=== PATIENT | female | born 1955 | race Two or more races ===

== ENCOUNTER 2024-06-21 12:55 | Emergency (ER) | payer OTHER ==
[~2024-06-21] VITALS: Ht 157.5 cm; Wt 58.1 kg
[2024-06-21] MEDS ORDERED: TENORMIN25 MG (13:09)
[2024-06-21] MEDS ORDERED: ROSUVASTATIN CAL5 MG PO (13:10)
[2024-06-21] MEDS ORDERED: ACETAMINOPHEN 500 MG GEL..CAP PO ONE (14:45)
== END 2024-06-21 18:21 ==
LOC: ER 12:57
DX: S52.592A Other fractures of lower end of left radius, initial encounter for closed fracture (principal); W18.39XA Other fall on same level, initial encounter; Y93.89 Activity, other specified; Y92.018 Other place in single-family (private) house as the place of occurrence of the external cause; I49.8 Other specified cardiac arrhythmias; E78.00 Pure hypercholesterolemia, unspecified

== ENCOUNTER 2024-07-02 12:06 | Outpatient (CLI) | payer OTHER ==
[~2024-07-02 12:06] MED LIST: ROSUVASTATIN CAL5 MG PO; TENORMIN25 MG
== END 2024-07-02 12:11 | disposition home or self-care (01) ==
LOC: RAD 12:06
PROVIDERS: ATTEND Orthopaedic Surgery
DX: S52.531A Colles' fracture of right radius, initial encounter for closed fracture (principal)

== ENCOUNTER 2024-07-03 09:26 | Outpatient (CLI) | payer OTHER ==
[2024-07-03 10:30] LABS: HEMATOCRIT 41.6 % (36.0-45.00); HEMOGLOBIN 14.3 g/dL (12.0-15.00); MEAN CELL VOLUME 89.3 fL (80.00-100.00); MEAN CORPUSCULAR HEMOGLOBIN 30.6 pg (27.00-32.0); MEAN CORPUSCULAR HGB CONC 34.3 g/dl (32.0-36.0); PLATELET COUNT 227 K/uL (150-450); RED BLOOD COUNT 4.66 M/uL (4.00-6.00); RED CELL DISTRIBUTION WIDTH 14.2 % (11.5-14.5)
[2024-07-03 10:37] LABS: PH,URINE 6.5 (5.0-8.0); URINE APPEARANCE Clear; URINE BILIRRUBIN Negative (NEGATIVE); URINE BLOOD Negative; URINE COLOR Yellow; URINE GLUCOSE Negative (NEGATIVE); URINE KETONE Negative (NEGATIVE); URINE LEUKOCYTE Negative; URINE NITRATE Negative; URINE PROTEIN Negative (NEGATIVE); URINE UROBILINOGEN 0.2 E.U./dl
[2024-07-03 10:43] LABS: URINE BACTERIA 6.1 uL (0.0-1933); URINE RBC 9.5 uL (0.0-20.8)
[2024-07-03 10:50] LABS: URINE EPITHELIAL CELLS 0.6 uL (0.0-38.8); URINE WBC 1.4 uL (0.0-23.2)
[2024-07-03 10:54] LABS: INR 1.05; PARTIAL THROMBOPLASTIN TIME 27.3 SECONDS (22.0-34.0); PROTHROMBIN TIME 11.4 SECONDS (9.0-11.5)
[2024-07-03 10:57] LABS: COL EPI 62 SECONDS (82-175)
[2024-07-03 11:35] LABS: ALBUMIN 4.1 gm/dL (3.4-5.0); BILIRUBIN TOTAL 0.62 mg/dL (0.3-1.2); CALCIUM 9.5 mg/dL (8.5-10.1); CREATININE SERUM 0.73 mg/dL (0.55-1.02); GFR 78.81; GLOBULINA 3.7 G/DL (2.4-3.5); POTASSIUM 4.75 mEq/L (3.5-5.1); TOTAL PROTEIN 7.8 gm/dL (6.4-8.2)
[2024-07-04] MEDS ORDERED: VITAMIN D250 MCG PO (12:48)
[2024-07-04] MEDS ORDERED: NASAL MIST126 ML (12:49)
== END 2024-07-03 09:36 | disposition home or self-care (01) ==
LOC: LAB 09:26 → RAD 09:26
PROVIDERS: ATTEND Orthopaedic Surgery
DX: D64.9 Anemia, unspecified (principal); E88.89 Other specified metabolic disorders; D68.8 Other specified coagulation defects; N39.0 Urinary tract infection, site not specified; Z22.322 Carrier or suspected carrier of Methicillin resistant Staphylococcus aureus; E11.9 Type 2 diabetes mellitus without complications; Z76.89 Persons encountering health services in other specified circumstances; I10 Essential (primary) hypertension

== ENCOUNTER 2024-07-07 06:30 | Day surgery (SDC) | payer OTHER ==
[2024-07-04 14:57] VITALS: BP 155/70
[~2024-07-07 06:30] MED LIST changes: +NASAL MIST126 ML; +VITAMIN D250 MCG PO
[2024-07-07] MEDS ORDERED: BUPIVACAINE HCL 30 ML VIAL IJ ONE (07:30)
[2024-07-07] MEDS ORDERED: CEFAZOLIN SODIUM 1,000 MG VIAL IV ONE (07:30)
[2024-07-07] MEDS ORDERED: LIDOCAINE HCL 1%/EPINEPHRINE 20ML VIAL IJ ONE (07:30)
[2024-07-07] MEDS ORDERED: KETOROLAC TROMETHAMINE 60 MG VIAL IM ONE ×2 (10:40)
== END 2024-07-07 13:45 | disposition home or self-care (01) ==
LOC: CIR.AMB 06:30
PROVIDERS: ATTEND Orthopaedic Surgery
DX: S52.532A Colles' fracture of left radius, initial encounter for closed fracture (principal); Z88.1 Allergy status to other antibiotic agents; Z88.2 Allergy status to sulfonamides; I10 Essential (primary) hypertension; F41.9 Anxiety disorder, unspecified; J45.909 Unspecified asthma, uncomplicated
CPT/HCPCS: 25609; L8699

== ENCOUNTER 2024-07-31 10:22 | Outpatient (CLI) | payer OTHER | END 2024-07-31 10:26 | disposition home or self-care (01) | LOC: RAD 10:22 | PROVIDERS: ATTEND Orthopaedic Surgery | DX: S52.532D Colles' fracture of left radius, subsequent encounter for closed fracture with routine healing (principal); X58.XXXD Exposure to other specified factors, subsequent encounter ==

== ENCOUNTER 2024-11-12 09:53 | Outpatient (CLI) | payer OTHER | END 2024-11-12 09:59 | disposition home or self-care (01) | LOC: RAD 09:53 | PROVIDERS: ATTEND Orthopaedic Surgery | DX: S52.532D Colles' fracture of left radius, subsequent encounter for closed fracture with routine healing (principal); X58.XXXD Exposure to other specified factors, subsequent encounter ==